=== PATIENT | male | born 1965 | race Caucasian/White ===

== ENCOUNTER 2017-05-28 09:08 | Inpatient (IN) | payer OTHER ==
[~2017-05-28] VITALS: Ht 183 cm; Wt 124.7 kg
--- NOTE | ~2017-05-28 | HP ---
History And Physical [place] [address] [place]. [address] NAME: AVTAR CORRIGAN : 69 STATUS : ADM IN [facility]#: [id number] AGE: 51 ADM/REG DATE : 05/28/17 MR#: [id number] REPORT SERV DATE: 05/28/17 DICTATED BY: MELINA SANTAMARIA DATE: 05/28/17 REPORT STATUS : Draft TRANSCRIBED BY: MODL DATE: 05/28/17 DATE OF ADMISSION: 05/28/2017 HISTORY OF PRESENT ILLNESS: Mr. Corrigan is a 51-year-old white male, who has history of coronary artery disease with what he says would be six or seven stents to his coronary arteries. Last one in 2013. He does not take his aspirin and Plavix daily like he should. He also has diabetes, dyslipidemia, hypertension, and reflux. He started having pain two or three days ago, became intense last night. Went to [place] emergency room and was transferred according to his wishes to [place] to have a procedure done here at [facility]. PAST MEDICAL HISTORY: As outlined above. ALLERGIES: ACCORDING TO THE CHART. MEDICINES: According to the chart, and we do note that he should be on aspirin and Plavix, Lopressor, Altace, and Lipitor. SOCIAL HISTORY: He is a nonsmoker with a negative family history. SURGERIES: No other surgeries. REVIEW OF SYSTEMS: Otherwise all negative. PHYSICAL EXAMINATION: VITAL SIGNS: His heart rate is in the 70s. Blood pressure around 140 systolic. GENERAL: The patient is an overweight white male. He is alert and oriented x3, in no distress. HEENT: Pupils equal, round, and reactive to light and accommodation. Extraocular muscles are intact. NECK: Supple. Trachea midline. No carotid bruits. CHEST: Clear. HEART: PMI midclavicular line. Regular rate and rhythm. No significant murmur. ABDOMEN: Protuberant, soft. EXTREMITIES: No clubbing, cyanosis, or edema. NEURO: Nonfocal. DATA: The 12-lead EKG shows subtle ST elevation in the inferior leads with subtle reciprocal changes in the lateral leads. There are Q-waves inferiorly. We have no old EKG to compare with. Blood work is all pending. CLINICAL IMPRESSIONS: History And Physical [place] [address] [place]. [address] NAME: AVTAR CORRIGAN : 69 STATUS : ADM IN PAT#: [id number] AGE: 51 ADM/REG DATE : 05/28/17 MR#: [id number] REPORT SERV DATE: 05/28/17 DICTATED BY: MELINA SANTAMARIA DATE: 05/28/17 REPORT STATUS : Draft TRANSCRIBED BY: GABBI DATE: 05/28/[address]-elevation myocardial infarction. Received mg/kg Lovenox two hours ago in [place], [place]. 2. Obesity. 3. Hypertension, dyslipidemia, and diabetes. 4. Noncompliance with medications. 5. Coronary disease with history of six or seven stents in the past. PLAN: Primary PCI. [facility]/GABBI Melina Santamaria M.D. / [id number] CC: Melina Santamaria M.D.
--- NOTE | ~2017-05-28 | CN ---
Consultation Report [facility] [address] [place]. [address] NAME: AVTAR CORRIGAN : 69 STATUS : ADM IN [facility]#: [id number] AGE: 51 ADM/REG DATE : 05/28/17 MR#: [id number] REPORT SERV DATE: 05/28/17 DICTATED BY: AYO QUINN DATE: 05/28/17 REPORT STATUS : Draft TRANSCRIBED BY: MODL DATE: 05/28/17 CONSULTATION REPORT DATE OF CONSULTATION: 05/28/2017 CONSULTATION REASON: Diabetes mellitus. CHIEF COMPLAINT: Chest pain. HISTORY OF PRESENT ILLNESS: The patient was admitted to the hospital with a code STEMI and subsequently taken to the color laboratory technician due to the LAD per Dr. Sanchez. The patient has a significant history of coronary artery disease and he is unsure how many stents he has had in the past, but he believes it six or seven. He does not have a history of diabetes mellitus that he knows of. He is not on any antidiabetic medications or insulin. His blood sugar on admission was 407. He reports drinking lots of soft drinks every day. He drinks two to three Sprites per meal. He reports polydipsia and polyuria. Denies fevers, chills, headaches. PAST MEDICAL HISTORY: Includes coronary artery disease, hyperlipidemia, hypertension, and gastroesophageal reflux disease. PAST SURGICAL HISTORY: Possibly six to seven cardiac stents? Otherwise, no surgery reported. SOCIAL HISTORY: The patient denies alcohol, tobacco, and illicit drug use. FAMILY HISTORY: His mother of cancer, he is unsure of what type, and his father had a stroke. He has two brothers who are reportedly healthy. ALLERGIES: INCLUDE PENICILLINS AND MORPHINE. HOME MEDICATIONS: Include aspirin 81 mg p.o. daily, Lipitor 80 mg p.o. daily, Plavix 75 mg p.o. daily, Lopressor 25 mg p.o. b.i.d., Prilosec 40 mg p.o. daily, and Altace 5 mg p.o. b.i.d. REVIEW OF SYSTEMS: A 10-point review of systems was performed and all pertinent positives as noted above, otherwise, negative. PHYSICAL EXAMINATION: VITAL SIGNS: O2 saturation 97%; blood pressure 113/56; heart rate 52, sinus bradycardia on the monitor. CONSTITUTIONAL: The patient is awake, alert, conversing appropriately, and in no acute distress. Consultation Report [facility] [address] [place]. [address] NAME: AVTAR CORRIGAN : 69 STATUS : ADM IN PAT#: [id number] AGE: 51 ADM/REG DATE : 05/28/17 MR#: [id number] REPORT SERV DATE: 05/28/17 DICTATED BY: AYO QUINN DATE: 05/28/17 REPORT STATUS : Draft TRANSCRIBED BY: GABBI DATE: 05/28/17 HEENT: Sclerae are white. Pupils are equal, round, reactive to light and accommodation. NEURO: Alert and oriented x4. He follows commands. EOMs are intact. CARDIOVASCULAR: S1 and S2 present, regular. No rubs, gallops, or abnormalities heard. LUNGS: Clear throughout lung august. ABDOMEN: Soft. No organomegaly appreciated. Bowel sounds are present. EXTREMITIES: Peripheral pulses are present. Good color, movement, and circulation. There is a compression dressing on the right radial artery, status post heart catheterization. LABORATORY: White blood cell 8.9, hemoglobin 15.2, hematocrit 42.5, and platelets 266,000. Sodium 135, potassium 5.3, chloride 103, CO2 of 25, BUN 11, creatinine 1.3, glucose 407, calcium 9.0, and magnesium 2.2. CPK 833, CK-MB 114.3, and troponin 0.04. ASSESSMENT: 1. Diabetes mellitus type 2, newly diagnosed. 2. Hypertension. 3. Hyperlipidemia. 4. Noncompliance with medications. 5. Coronary artery disease, status post multiple stents in the past. PLAN: Plan is to start level 2 sliding scale. Check hemoglobin A1c. Monitor blood sugars over the next 24 hours to see how to proceed with insulin regimen. Consult consumer educator and educate the patient on diet as well as medication adherence. Put the patient on hypoglycemia protocol and check his blood sugars a.c. and h.s. DICTATED BY: ANDREW Josue/GABBI Ayo Quinn MD / [id number]
[2017-05-28 10:11] LABS: BASOPHILS 0.1 %; BASOPHILS ABSOLUTE 0.01 10/3/uL (0.0-0.16); EOSINOPHILS 0.1 %; EOSINOPHILS ABSOLUTE 0.01 10/3/uL (0.0-0.53); HEMATOCRIT 42.5 % (40.0-51.0); HEMOGLOBIN 15.2 g/dL (13.6-17.8); IMMATURE GRANULOCYTES 0.2 %; IMMATURE GRANULOCYTES ABSOLUTE 0.02 10/3/uL (0.0-0.11); LYMPHOCYTES 12.9 %; LYMPHOCYTES ABSOLUTE 1.15 10/3/uL (0.67-4.30); MEAN CORPUS HGB CONC 35.8 g/dL (32.0-36.0); MEAN CORPUSCULAR HEMOGLOB 31.7 pg (26.0-34.0); MEAN CORPUSCULAR VOLUME 88.7 fL (80-100); MEAN PLATELET VOLUME 10.1 fL (9.2-13.0); MONOCYTES ABSOLUTE 0.53 10/3/uL (0.21-1.20); NEUTROPHILS 80.7 %; NEUTROPHILS ABSOLUTE 7.18 10/3/uL (2.02-8.40); PLATELET COUNT 266 10/3/uL (150-400); RBC DISTRIBUTION WIDTH 12.1 % (12.0-16.0); RED CELL COUNT 4.79 10/6/uL (4.7-6.1); WHITE BLOOD CELLS 8.9 10/3/uL (4.5-10.5)
[2017-05-28 10:13] LABS: MANUAL DIFF NO %
[2017-05-28 10:17] LABS: PARTIAL THROMBO TIME 25.6 SEC (22.5-37.2); PROTIME (NOT ORD) 13.5 SEC (12.0-14.5)
[2017-05-28 10:27] LABS: BUN (BLOOD UREA NITROGEN) 11 MG/DL (6-23); CHEST PAIN PROFILE TAT 0 Hrs 22 Mins; CHLORIDE, SERUM 103 MMOL/L (96-112); CO2 (CARBON DIOXIDE) 25 MMOL/L (24-34); GFR AFRICAN AMERICAN 74 ML/MIN (>=60); GFR NON AFRICAN AMERICAN 64 ML/MIN (>=60); POTASSIUM, SERUM 5.3 MMOL/L (3.5-5.3); SODIUM, SERUM 135 MMOL/L (135-148); TROPONIN I 0.04 NG/ML (<0.05)
[2017-05-28 10:28] LABS: GLUCOSE, SERUM 407 MG/DL (60-99)
[2017-05-28] MEDS ORDERED: PLAVIX PO (13:25)
[2017-05-28] MEDS ORDERED: LOP25 PO (13:25)
[2017-05-28] MEDS ORDERED: ALTA5 PO (13:26)
[2017-05-28] MEDS ORDERED: LIPITOR80 MG PO (13:26)
[2017-05-28] MEDS ORDERED: PRILOSEC40 MG PO (13:26)
[2017-05-28] MEDS ORDERED: ASAB PO (13:26)
[2017-05-28 13:54] LABS: CK-MB 114.3 NG/ML; CKMB INDEX (NOT ORD) 13.7
[2017-05-28 20:44] LABS: CK-MB 113.1 NG/ML
[2017-05-28 20:48] LABS: CKMB INDEX (NOT ORD) 13.7
[2017-05-29 04:19] LABS: BASOPHILS 0.1 %; BASOPHILS ABSOLUTE 0.01 10/3/uL (0.0-0.16); EOSINOPHILS 0.7 %; EOSINOPHILS ABSOLUTE 0.06 10/3/uL (0.0-0.53); HEMATOCRIT 38.7 % (40.0-51.0); HEMOGLOBIN 13.7 g/dL (13.6-17.8); IMMATURE GRANULOCYTES 0.1 %; IMMATURE GRANULOCYTES ABSOLUTE 0.01 10/3/uL (0.0-0.11); LYMPHOCYTES 31.3 %; LYMPHOCYTES ABSOLUTE 2.51 10/3/uL (0.67-4.30); MANUAL DIFF NO %; MEAN CORPUS HGB CONC 35.4 g/dL (32.0-36.0); MEAN CORPUSCULAR HEMOGLOB 31.7 pg (26.0-34.0); MEAN CORPUSCULAR VOLUME 89.6 fL (80-100); MEAN PLATELET VOLUME 10.1 fL (9.2-13.0); MONOCYTES 8.7 %; NEUTROPHILS 59.1 %; NEUTROPHILS ABSOLUTE 4.72 10/3/uL (2.02-8.40); PLATELET COUNT 272 10/3/uL (150-400); RBC DISTRIBUTION WIDTH 12.4 % (12.0-16.0); RED CELL COUNT 4.32 10/6/uL (4.7-6.1)
[2017-05-29 04:34] LABS: BUN (BLOOD UREA NITROGEN) 14 MG/DL (6-23); CALCIUM, SERUM 7.8 MG/DL (8.5-10.4); CHLORIDE, SERUM 105 MMOL/L (96-112); CHOL/HDL RATIO(NOT ORDER) 7.9 (0-5); CHOLESTEROL 230 MG/DL (< 200); CK-MB 79.6 NG/ML; CKMB INDEX (NOT ORD) 11.8; CO2 (CARBON DIOXIDE) 25 MMOL/L (24-34); CPK 677 U/L (0-200); CREATININE 1.23 MG/DL (0.70-1.30); GFR AFRICAN AMERICAN 79 ML/MIN (>=60); GFR NON AFRICAN AMERICAN 69 ML/MIN (>=60); GLUCOSE, SERUM 286 MG/DL (60-99); HDL CHOLESTEROL 29 MG/DL (> 39); NON-HDL CHOLESTEROL 201 MG/DL (< 160); POTASSIUM, SERUM 3.9 MMOL/L (3.5-5.3); SODIUM, SERUM 137 MMOL/L (135-148); TRIGLYCERIDE 428 MG/DL (< 150)
[2017-05-29 12:50] LABS: CK-MB 52.2 NG/ML; CKMB INDEX (NOT ORD) 9.9
[2017-05-30 04:58] LABS: BASOPHILS 0.1 %; BASOPHILS ABSOLUTE 0.01 10/3/uL (0.0-0.16); EOSINOPHILS 1.2 %; EOSINOPHILS ABSOLUTE 0.09 10/3/uL (0.0-0.53); HEMATOCRIT 36.6 % (40.0-51.0); HEMOGLOBIN 12.8 g/dL (13.6-17.8); IMMATURE GRANULOCYTES 0.4 %; IMMATURE GRANULOCYTES ABSOLUTE 0.03 10/3/uL (0.0-0.11); LYMPHOCYTES 35.7 %; LYMPHOCYTES ABSOLUTE 2.76 10/3/uL (0.67-4.30); MEAN CORPUSCULAR HEMOGLOB 31.4 pg (26.0-34.0); MEAN CORPUSCULAR VOLUME 89.7 fL (80-100); MEAN PLATELET VOLUME 9.9 fL (9.2-13.0); MONOCYTES 8.7 %; MONOCYTES ABSOLUTE 0.67 10/3/uL (0.21-1.20); NEUTROPHILS 53.9 %; NEUTROPHILS ABSOLUTE 4.17 10/3/uL (2.02-8.40); PLATELET COUNT 235 10/3/uL (150-400); RBC DISTRIBUTION WIDTH 12.5 % (12.0-16.0); RED CELL COUNT 4.08 10/6/uL (4.7-6.1); WHITE BLOOD CELLS 7.7 10/3/uL (4.5-10.5)
[2017-05-30 05:00] LABS: MANUAL DIFF NO %
[2017-05-30 05:22] LABS: A/G RATIO 0.8 (0.7-1.9); ALBUMIN 2.9 G/DL (3.5-5.0); ALKALINE PHOSPHATASE 82 U/L (45-117); BUN (BLOOD UREA NITROGEN) 16 MG/DL (6-23); CALCIUM, SERUM 8.3 MG/DL (8.5-10.4); CHLORIDE, SERUM 104 MMOL/L (96-112); CO2 (CARBON DIOXIDE) 27 MMOL/L (24-34); CREATININE 1.07 MG/DL (0.70-1.30); GFR AFRICAN AMERICAN 94 ML/MIN (>=60); GFR NON AFRICAN AMERICAN 81 ML/MIN (>=60); GLOBULIN 3.5 G/DL (2.5-4.1); POTASSIUM, SERUM 4.2 MMOL/L (3.5-5.3); SGOT(AST) 72 U/L (5-40); SGPT(ALT) 53 U/L (5-65); SODIUM, SERUM 138 MMOL/L (135-148); TOTAL BILIRUBIN 0.6 MG/DL (0-1.2); TOTAL PROTEIN 6.4 G/DL (6.0-8.5)
[2017-05-30 05:23] LABS: GLUCOSE, SERUM 209 MG/DL (60-99)
[2017-05-30] MEDS ORDERED: EFFIENT10 PO (09:58)
[2017-05-30] MEDS ORDERED: COREG3 PO (09:59)
[2017-05-30] MEDS ORDERED: ALTA2.5 PO (09:59)
[2017-05-30] MEDS ORDERED: NTG150 SL (10:00)
[2017-05-30] MEDS ORDERED: NOVOLOG SQ (12:29)
[2017-05-30] MEDS ORDERED: LEVEMIR SC (12:29)
[2017-05-30] MEDS ORDERED: PLAVIX300 MG PO (12:30)
[2017-05-30] MEDS ORDERED: PLAVIX PO (12:31)
== END 2017-05-30 15:53 | disposition home or self-care (01) | DRG 246 ==
LOC: ENRESERVTM → ENRESERVDT → ENRESERV → ER 09:08 → SSU2 10:15 → CCU 10:15 → 7NO 10:15 → CCU 12:17 → 7NO 05-29 09:46
PROVIDERS: Emergency Medicine; Internal Medicine Interventional Cardiology
PROC: 027034Z Dilation of Coronary Artery, One Artery with Drug-eluting Intraluminal Device, Percutaneous Approach (ICD-10-PCS; principal; 2017-05-28)
PROC: 4A023N7 Measurement of Cardiac Sampling and Pressure, Left Heart, Percutaneous Approach (ICD-10-PCS; 2017-05-28)
PROC: 02C03ZZ Extirpation of Matter from Coronary Artery, One Artery, Percutaneous Approach (ICD-10-PCS; 2017-05-28)
PROC: 02703ZZ Dilation of Coronary Artery, One Artery, Percutaneous Approach (ICD-10-PCS; 2017-05-28)
PROC: B2151ZZ Fluoroscopy of Left Heart using Low Osmolar Contrast (ICD-10-PCS; 2017-05-28)
PROC: B2111ZZ Fluoroscopy of Multiple Coronary Arteries using Low Osmolar Contrast (ICD-10-PCS; 2017-05-28)
DX: T82.867A Thrombosis due to cardiac prosthetic devices, implants and grafts, initial encounter (principal); I21.19 ST elevation (STEMI) myocardial infarction involving other coronary artery of inferior wall; I10 Essential (primary) hypertension; I25.10 Atherosclerotic heart disease of native coronary artery without angina pectoris; I25.2 Old myocardial infarction; E78.5 Hyperlipidemia, unspecified; E11.65 Type 2 diabetes mellitus with hyperglycemia; K21.9 Gastro-esophageal reflux disease without esophagitis; E78.00 Pure hypercholesterolemia, unspecified; Z91.14 Patient's other noncompliance with medication regimen; Z88.0 Allergy status to penicillin; Z88.5 Allergy status to narcotic agent; Z79.82 Long term (current) use of aspirin
CPT/HCPCS: 71010; 80048; 80053; 80061; 82550; 82553; 82565; 82962; 83036; 83735; 84484; 85025; 85347; 85610; 85730; 87641; 93005; 93454; 99152; 99153; A9270-GY; C1725; C1757; C1769; C1874; C1887; C1894; C8929; C9606; J2250; J2405; J3010; J3246; Q9957; Q9967